=== PATIENT | female | born 1990 | race African-American/Black ===

== ENCOUNTER 2017-02-18 13:37 | Emergency (ER) | payer OTHER ==
[~2017-02-18] VITALS: Ht 167.6 cm; Wt 61.2 kg
[~2017-02-18 13:37] MED LIST: NAPR-683 PO; OXYC-323 PO
[2017-02-18 13:42] VITALS: BP 116/68
[2017-02-18] MEDS ORDERED: HYDR-971 PO (14:23)
[2017-02-18] MEDS ORDERED: PRED20TA PO (14:23)
[2017-02-18] MEDS ORDERED: DOXY100T9 PO (14:23)
--- NOTE | 2017-02-18 14:23 | PHYS DOC ---
Past Medical History Past Medical History: Other Additional Past Medical Histor: LUPUS Past Surgical History: No Surgical History Alcohol Use: Rarely Drug Use: None Adult General Chief Complaint Chief Complaint: SKIN PROBLEM HPI HPI Patient is a 27 year old female presents the ED complaining of blisters to body 3 days. Patient has a history of lupus. States she started to develop small blisters on her arms and now it's on her upper body, abdomen, back and neck. Describes the blisters as painful. Rates the pain as 9 out of 10. States she hasn't taken any new medications, new soaps, new lotions or detergents. States she takes medicine that she has always been taking for her lupus with no recent changes. Patient states she was unable to get in to see her commercial counsel today. Denies fever, nausea/vomiting, sick contacts with similar symptoms, abdominal pain, chest pain, shortness of breath, vision changes, dizziness or weakness. Review of Systems Review of Systems Constitutional: Denies fever or chills [] Eyes: Denies change in visual acuity, redness, or eye pain [] HENT: Denies nasal congestion or sore throat [] Respiratory: Denies cough or shortness of breath [] Cardiovascular: No additional information not addressed in HPI [] GI: Denies abdominal pain, nausea, vomiting, bloody stools or diarrhea [] : Denies dysuria or hematuria [] Musculoskeletal: Denies back pain or joint pain [] Integument: Denies rash or skin lesions [] Neurologic: Denies headache, focal weakness or sensory changes [] Endocrine: Denies polyuria or polydipsia [] All other systems were reviewed and found to be within normal limits, except as documented in this note. Allergies Allergies Allergies Coded Allergies Type Severity Reaction Last Updated Verified hydrocodone Allergy Intermediate 02/18/17 No sulfamethoxazole Allergy Intermediate 02/18/17 No trimethoprim Allergy Intermediate 02/18/17 No Physical Exam Physical Exam Constitutional: Well developed, well nourished, no acute distress, non-toxic appearance. [] HENT: Normocephalic, atraumatic, bilateral external ears normal, oropharynx moist, no oral exudates, nose normal. [] Eyes: PERRLA, EOMI, conjunctiva normal, no discharge. [] Cardiovascular:Heart rate regular rhythm, no murmur [] Lungs & Thorax: Bilateral breath sounds clear to auscultation [] Skin: Warm, dry, MULTILPLE SMALL BLISTERS TO ARMS, BACK, TRUNK AND NECK CONSISTENT WITH BULLOUS PEMPHIGOID. [] Back: No tenderness, no CVA tenderness. [] Neurologic: Alert and oriented X 3, normal motor function, normal sensory function, no focal deficits noted. [] Psychologic: Affect normal, judgement normal, mood normal. [] Current Patient Data Vital Signs Vital Signs Date Time Temp Pulse Resp B/P (MAP) Pulse Ox O2 Delivery O2 Flow Rate FiO2 02/18/17 13:42 98.6 85 18 100 Room Air 98.6 EKG EKG [] Radiology/Procedures Radiology/Procedures [] Course & Med Decision Making Course & Med Decision Making Pertinent Labs and Imaging studies reviewed. (See chart for details) []Patient tried to get in to see her commercial counsel today but was unable to. Discussed with patient the need to see her commercial counsel for further evaluation. Patient's tetanus up-to-date. Patient's pain improved in the ED. Provided in-depth education and symptomatic treatment measures for patient. Will discharge with doxycycline, prednisone and Percocet for analgesics. Patient states she should be able to get into see her doctor early next week. Discussed reasons to return to the ED. Patient understands and agrees with plan. Dragon Disclaimer Dragon Disclaimer This electronic medical record was generated, in whole or in part, using a voice recognition dictation system. Departure Departure Impression: Primary Impression: Bullous pemphigoid Disposition: 01 HOME, SELF-CARE Condition: STABLE Referrals: NON,STAFF (PCP) CRYSTAL LOPEZ MD Patient Instructions: Bullous Pemphigoid Scripts Oxycodone/Apap 5-325 (PERCOCET 5-325 MG TABLET) 1 Each Tablet 1 TAB PO TID, #12 TAB Prov: SEGUN MATA 02/18/17 Prednisone (PREDNISONE) 20 Mg Tablet 2 TAB PO DAILY, #12 TAB Prov: SEGUN MATA 02/18/17 Doxycycline Hyclate (DOXYCYCLINE HYCLATE) 100 Mg Tablet. 1 TAB PO BID, #20 TAB Prov: SEGUN MATA 02/18/17 SEGUN MATA Feb 18, 2017 14:23
[2017-02-18] MEDS ORDERED: OXYC-323 PO (14:35)
== END 2017-02-18 14:28 | disposition home or self-care (01) ==
LOC: ER 13:37
DX: L12.0 Bullous pemphigoid (principal); M32.9 Systemic lupus erythematosus, unspecified; Z88.2 Allergy status to sulfonamides; Z88.5 Allergy status to narcotic agent; Z88.8 Allergy status to other drugs, medicaments and biological substances
CPT/HCPCS: 99283

== ENCOUNTER 2017-02-19 18:07 | Emergency (ER) | payer OTHER ==
[~2017-02-19] VITALS: Ht 170.2 cm; Wt 61.2 kg
[~2017-02-19 18:07] MED LIST changes: +DOXY100T9 PO; +HYDR-971 PO; +PRED20TA PO
[2017-02-19 18:15] VITALS: BP 149/85
[2017-02-19] MEDS ORDERED: ACETAMINOPHEN 500 MG TABLET PO ONE (18:30)
--- NOTE | 2017-02-19 18:30 | PHYS DOC ---
Past Medical History Past Medical History: Other Additional Past Medical Histor: LUPUS Past Surgical History: No Surgical History Alcohol Use: Rarely Drug Use: None Adult General Chief Complaint Chief Complaint: PAIN CONTROL HPI HPI Patient is a 27 year old female who presents complaining her prescription for oxycodone was cancelled by Dr. Guerin yesterday and she would like another prescription. She was seen yesterday in the ED for bullous pemphigoid and was discharged with doxycycline, prednisone and oxycodone. She states she went to the pharmacy and they counseled her oxycodone prescription. She has hx of Lupus. Review of Systems Review of Systems Constitutional: Denies fever or chills [] Eyes: Denies change in visual acuity, redness, or eye pain [] HENT: Denies nasal congestion or sore throat [] Respiratory: Denies cough or shortness of breath [] Cardiovascular: No additional information not addressed in HPI [] GI: Denies abdominal pain, nausea, vomiting, bloody stools or diarrhea [] : Denies dysuria or hematuria [] Musculoskeletal: Denies back pain or joint pain [] Integument: rash Neurologic: Denies headache, focal weakness or sensory changes [] All other systems were reviewed and found to be within normal limits, except as documented in this note. Current Medications Current Medications Current Medications Medications (Trade) Dose Ordered Sig/Heather Start Time Stop Time Status Last Admin Dose Admin Acetaminophen (Tylenol) 500 mg 1X ONCE 02/19/17 18:30 02/19/17 18:35 DC 02/19/17 18:31 500 MG Allergies Allergies Allergies Coded Allergies Type Severity Reaction Last Updated Verified hydrocodone Allergy Intermediate 02/18/17 No sulfamethoxazole Allergy Intermediate 02/18/17 No trimethoprim Allergy Intermediate 02/18/17 No Physical Exam Physical Exam Constitutional: Well developed, well nourished, no acute distress, non-toxic appearance. [] HENT: Normocephalic, atraumatic, bilateral external ears normal, oropharynx moist, no oral exudates, nose normal. [] Eyes: PERRLA, EOMI, conjunctiva normal, no discharge. [] Neck: Normal range of motion, no tenderness, supple, no stridor. [] Cardiovascular:Heart rate regular rhythm, no murmur [] Lungs & Thorax: Bilateral breath sounds clear to auscultation [] Abdomen: Bowel sounds normal, soft, no tenderness, no masses, no pulsatile masses. [] Skin: Warm, dry, blisters noted to bilateral upper extermities consistent with bullous pemphigoid. Patient not willing to be examined further she states she wants pain medicines. Back: No tenderness, no CVA tenderness. [] Extremities: No tenderness, no cyanosis, no clubbing, ROM intact, no edema. [] Neurologic: Alert and oriented X 3, normal motor function, normal sensory function, no focal deficits noted. [] Psychologic: Affect normal, judgement normal, mood normal. [] Current Patient Data Vital Signs Vital Signs Date Time Temp Pulse Resp B/P (MAP) Pulse Ox O2 Delivery O2 Flow Rate FiO2 02/19/17 18:15 99.2 106 16 97 Room Air 99.2 EKG EKG [] Radiology/Procedures Radiology/Procedures [] Course & Med Decision Making Course & Med Decision Making Pertinent Labs and Imaging studies reviewed. (See chart for details) This is a 27 year old female patient presenting to the ED complaining that her prescription for oxycodone she got yesterday for bullous pemphigoid lesions was cancelled. Informed patient I will not refill this prescription. I will give her Tylenol in the Ed and she should fill rx for doxycycline and prednisone but she got yesterday. Patient with very upset. She states that she is going in the car and never returned. INFORMED PATIENT I JUST SAW HER IN THE ED ON 02/14/2017 (UNDER THE NAME RICARDA BARBER 02/13/1989). SHE STATES THAT IS HER TWIN SISTER. I ASKED HER, HER TWIN SISTER HAS THE SAME EXACT TWO GIRLS SHE HAD WHEN I SAW HER 02/14/2017. SHE STATES SHE HAS two BOYS, SHE IS BABY SITING HER SISTERS CHILDREN. I ASKED HER WHERE HER CHILDREN WERE. SHE WILL NOT GIVE ME ANSWERS. PLEASE TAKE NOTE HER IS DIFFERENT FROM HER SO CALLED TWIN SISTER'S DATE OF . SHE ELOPED SOON SHE REALIZED WE HAD FIGURED HER ALIAS NAMES. Dragon Disclaimer Dragon Disclaimer This electronic medical record was generated, in whole or in part, using a voice recognition dictation system. Departure Departure Impression: Primary Impression: Bullous pemphigoid Additional Impressions: Narcotic abuse Drug-seeking behavior Disposition: HOME, SELF-CARE Condition: STABLE Referrals: NO PCP (PCP) follow up with your doctor next week Patient Instructions: Bullous Pemphigoid Additional Instructions: Our ER will NOT give you another narcotics prescription. You need to follow up with your own doctor as soon as you can. Please fill prescriptions for prednisone and doxycycline that you already have. Take over the counter pain medicines as needed for pain. Problem Qualifiers AJAY HORTON APRN Feb 19, 2017 18:30
== END 2017-02-19 18:52 | disposition home or self-care (01) ==
LOC: ER 18:07
DX: L12.0 Bullous pemphigoid (principal); F11.10 Opioid abuse, uncomplicated; M32.9 Systemic lupus erythematosus, unspecified; Z76.5 Malingerer [conscious simulation]; Z88.5 Allergy status to narcotic agent; Z88.2 Allergy status to sulfonamides; Z88.1 Allergy status to other antibiotic agents
CPT/HCPCS: 99282

== ENCOUNTER 2018-06-30 02:46 | Emergency (ER) | payer OTHER ==
[~2018-06-30] VITALS: Ht 175.3 cm; Wt 77.1 kg
[~2018-06-30 02:46] MED LIST changes: +HYDR-3164 PO; -HYDR-971 PO; -OXYC-323 PO; +OXYC1TAB15 PO
--- NOTE | 2018-06-30 03:34 | PHYS DOC ---
Past Medical History Past Medical History: Other Additional Past Medical Histor: LUPUS Past Surgical History: No Surgical History Alcohol Use: Rarely Drug Use: None Adult General Chief Complaint Chief Complaint: VAGINAL BLEEDING HPI HPI Patient is a 28 year old female who presents with vaginal bleeding. Patient states that she has been continuously bleeding for the past three months. Patient states that she has been going through about fifteen pads a day. Patient states that the blood is bright red. Patient states that the bleeding became more significant and associated with large clots over the past few days. Patient reports feeling nauseous, weak, fatigued, and lightheaded over the past three months. Patient reports having a decreased appetite and losing fifty pounds unintentionally in the past three months. Patient states that she last gave on 08/30/17 and had a tubal ligation afterwards. Patient denies having any abdominal pain. Patient states that she has noticed a vaginal odor, however, she denies any abnormal discharge. Review of Systems Review of Systems Constitutional: Denies fever or chills Eyes: Denies change in visual acuity, or eye pain HENT: Denies nasal congestion or sore throat Respiratory: Denies cough or shortness of breath Cardiovascular: Denies chest pain or palpitations GI: Denies abdominal pain, vomiting, or diarrhea : Denies dysuria or hematuria Musculoskeletal: Denies back pain or joint pain Integument: Denies rash or skin lesions Neurologic: Denies headache, focal weakness or sensory changes Complete systems were reviewed and found to be within normal limits, except as documented in this note. Current Medications Current Medications Current Medications Medications (Trade) Dose Ordered Sig/Heather Start Time Stop Time Status Last Admin Dose Admin Sodium Chloride 1,000 ml @ 1,000 mls/hr 1X ONCE 06/30/18 03:45 06/30/18 04:44 06/30/18 04:19 1,000 MLS/HR Allergies Allergies Allergies Coded Allergies Type Severity Reaction Last Updated Verified hydrocodone Allergy Intermediate 02/18/17 No sulfamethoxazole Allergy Intermediate 02/18/17 No trimethoprim Allergy Intermediate 02/18/17 No Physical Exam Physical Exam Constitutional: Well developed, well nourished, no acute distress, non-toxic appearance. HENT: Normocephalic, atraumatic, oropharynx moist, no oral exudates, nose normal. Eyes: PERRL, conjunctiva normal, no discharge. Neck: Normal range of motion, supple, no stridor. Cardiovascular:Heart rate regular rhythm, no murmur Lungs & Thorax: Bilateral breath sounds clear to auscultation Abdomen: Bowel sounds normal, soft, no tenderness on palpation. Skin: Warm, dry, no rash. Back: No tenderness, no CVA tenderness. Extremities: No tenderness, ROM intact, no edema. Pelvic: Scant blood noted in the vaginal vault. Female harpooner, Wilda MS3, present during the entire examination. Neurologic: Alert and oriented X3, normal motor function, normal sensory function, no focal deficits noted. Psychologic: Affect normal. Normal speech. Current Patient Data Vital Signs Vital Signs Date Time Temp Pulse Resp B/P (MAP) Pulse Ox O2 Delivery O2 Flow Rate FiO2 06/30/18 03:08 98.9 16 126/70 (88) 100 Room Air 98.9 Lab Values Laboratory Tests Test 06/30/18 03:18 06/30/18 03:30 POC Urine HCG, Qualitative Hcg negative (Negative) White Blood Count 10.0 x10^3/uL (4.0-11.0) Red Blood Count 4.35 x10^6/uL (3.50-5.40) Hemoglobin 8.7 g/dL (12.0-15.5) L Hematocrit 28.7 % (36.0-47.0) L Mean Corpuscular Volume 66 fL (79-100) L Mean Corpuscular Hemoglobin 20 pg (25-35) L Mean Corpuscular Hemoglobin Concent 31 g/dL (31-37) Red Cell Distribution Width 20.2 % (11.5-14.5) H Platelet Count 423 x10^3/uL (140-400) H Neutrophils (%) (Auto) 72 % (31-73) Lymphocytes (%) (Auto) 20 % (24-48) L Monocytes (%) (Auto) 5 % (0-9) Eosinophils (%) (Auto) 2 % (0-3) Basophils (%) (Auto) 1 % (0-3) Neutrophils # (Auto) 7.2 x10^3uL (1.8-7.7) Lymphocytes # (Auto) 2.0 x10^3/uL (1.0-4.8) Monocytes # (Auto) 0.5 x10^3/uL (0.0-1.1) Eosinophils # (Auto) 0.2 x10^3/uL (0.0-0.7) Basophils # (Auto) 0.1 x10^3/uL (0.0-0.2) Platelet Estimate Adequate (ADEQUATE) Polychromasia Slight Hypochromasia Marked Poikilocytosis Mod Basophilic Stippling Present Anisocytosis Mod Microcytosis Marked Ovalocytes Few Schistocytes Occ Sodium Level 139 mmol/L (136-145) Potassium Level 3.7 mmol/L (3.5-5.1) Chloride Level 103 mmol/L (98-107) Carbon Dioxide Level 23 mmol/L (21-32) Anion Gap 13 (6-14) Blood Urea Nitrogen 15 mg/dL (7-20) Creatinine 0.8 mg/dL (0.6-1.0) Estimated GFR (Cockcroft-Gault) 104.9 Glucose Level 108 mg/dL (70-99) H Calcium Level 9.0 mg/dL (8.5-10.1) Magnesium Level 2.0 mg/dL (1.8-2.4) Laboratory Tests 06/30/18 03:30 Laboratory Tests 06/30/18 03:30 Microbiology 06/30/18 Wet Prep - Final, Complete Microbiology 06/30/18 Wet Prep - Final, Complete EKG EKG [] Radiology/Procedures Radiology/Procedures PROCEDURE: PELVIS W/TV Complete pelvic ultrasound HISTORY: Menorrhagia, 10 months TECHNIQUE: Transabdominal transvaginal transducers with grayscale and duplex Doppler sonography. FINDINGS: Transabdominal sonography demonstrates anteverted uterus. Right ovary measures 4.0 x 1.7 x 2.3 cm with a 1.4 cm dominant follicle. Left ovary not visualized. Transvaginal sonography demonstrates anteverted uterus measuring 8.9 x 6.7 x 4.3 cm. Fundal endometrium thickness 0.5 cm. Mild hypoechoic fluid at the lower uterine endometrial canal. No mass or hypervascularity of the endometrium to localize retained product of conception. No uterine mass documented. Right ovary measures 1.6 x 4.3 x 1.8 cm, left ovary measures 2.5 x 1.4 x 1.3 cm. Intact bilateral ovarian blood flow. Right ovarian 1.8 cm dominant follicle. Subcentimeter left ovarian follicles. No pelvic fluid. IMPRESSION: Thin slip of lower uterine endometrial fluid. No uterine or endometrial mass or endometrial thickening evident. No sonographic findings of retained products of conception. Otherwise negative exam. Electronically signed by: Chad Chan MD (06/30/2018 4:09 AM) [facility] Course & Med Decision Making Course & Med Decision Making Patient is a 28 year old female who presents to the ED for vaginal bleeding. Patient given one liter of fluids in the ED. Pertinent Labs and Imaging studies reviewed. (See chart for details). Pelvic ultrasound did not reveal any acute abnormalities. Hemoglobin noted to be 8.7. Patient instructed to follow up with her [employer] [employer] physician. Patient stable for discharge with outpatient follow-up with PCP. Discussed findings and plan with patient and family, who acknowledge understanding and agreement. Dragon Disclaimer Dragon Disclaimer This electronic medical record was generated, in whole or in part, using a voice recognition dictation system. Departure Departure Impression: Primary Impression: Menometrorrhagia Disposition: 01 HOME, SELF-CARE Condition: STABLE Referrals: NO PCP (PCP) GUIDO MESSER Jr, MD Patient Instructions: Anemia, Nonspecific-Brief, Menorrhagia, [id number] MEMO STREETER DO Jun 30, 2018 03:34
[2018-06-30 03:36] LABS: BASO # 0.1 x10^3/uL (0.0-0.2); BASO % 1 % (0-3); EOS # 0.2 x10^3/uL (0.0-0.7); EOS % 2 % (0-3); HEMATOCRIT 28.7 % (36.0-47.0); HEMOGLOBIN 8.7 g/dL (12.0-15.5); LYMPH % 20 % (24-48); MEAN CORPUSCULAR HEMOGLOBIN 20 pg (25-35); MEAN CORPUSCULAR HGB CONC 31 g/dL (31-37); MEAN CORPUSCULAR VOLUME 66 fL (79-100); MONO # 0.5 x10^3/uL (0.0-1.1); MONO % 5 % (0-9); NEUT # 7.2 x10^3uL (1.8-7.7); NEUT % 72 % (31-73); PLATELET COUNT 423 x10^3/uL (140-400); RED BLOOD COUNT 4.35 x10^6/uL (3.50-5.40); RED CELL DISTRIBUTION WIDTH 20.2 % (11.5-14.5)
[2018-06-30 03:44] LABS: CREATININE 0.8 mg/dL (0.6-1.0); GFR 104.9; POTASSIUM 3.7 mmol/L (3.5-5.1)
[2018-06-30] MEDS ORDERED: IV NORMAL SALINE 1000ML BAG 1,000 ML IV ONE (03:45)
[2018-06-30 04:05] LABS: ANISOCYTOSIS MOD; HYPOCHROMIA MARKED; MICROCYTOSIS MARKED; PLT ESTIMATE ADEQUATE (ADEQUATE); POIKILOCYTOSIS MOD; POLYCHROMASIA SLIGHT
[2018-06-30 04:06] LABS: OVALOCYTES FEW; SCHISTOCYTES OCC
--- NOTE | 2018-06-30 04:13 | RAD ---
Complete pelvic ultrasound HISTORY: Menorrhagia, 10 months TECHNIQUE: Transabdominal transvaginal transducers with grayscale and duplex Doppler sonography. FINDINGS: Transabdominal sonography demonstrates anteverted uterus. Right ovary measures 4.0 x 1.7 x 2.3 cm with a 1.4 cm dominant follicle. Left ovary not visualized. Transvaginal sonography demonstrates anteverted uterus measuring 8.9 x 6.7 x 4.3 cm. Fundal endometrium thickness 0.5 cm. Mild hypoechoic fluid at the lower uterine endometrial canal. No mass or hypervascularity of the endometrium to localize retained product of conception. No uterine mass documented. Right ovary measures 1.6 x 4.3 x 1.8 cm, left ovary measures 2.5 x 1.4 x 1.3 cm. Intact bilateral ovarian blood flow. Right ovarian 1.8 cm dominant follicle. Subcentimeter left ovarian follicles. No pelvic fluid. IMPRESSION: Thin slip of lower uterine endometrial fluid. No uterine or endometrial mass or endometrial thickening evident. No sonographic findings of retained products of conception. Otherwise negative exam. Electronically signed by: Chad Chan MD (06/30/2018 4:09 AM) [facility]
[2018-06-30 05:20] VITALS: BP 103/53
[2018-07-03 15:15] LABS: GC PROBE Negative (Negative)
== END 2018-06-30 05:44 | disposition home or self-care (01) ==
LOC: ER 02:46
DX: N92.1 Excessive and frequent menstruation with irregular cycle (principal); R42 Dizziness and giddiness; R53.83 Other fatigue; R11.0 Nausea; R53.1 Weakness; Z88.1 Allergy status to other antibiotic agents; Z88.2 Allergy status to sulfonamides; Z88.5 Allergy status to narcotic agent
CPT/HCPCS: 36415; 76830; 76856; 80048; 81025; 83735; 85025; 87491; 87591; 96360; 99285; J7030; Q0111

== ENCOUNTER 2018-11-19 19:11 | Emergency (ER) | payer MEDICAID, OTHER ==
[~2018-11-19] VITALS: Ht 175.3 cm; Wt 77.1 kg
[2018-11-19 19:11] VITALS: BP 103/53
[2018-11-19] MEDS ORDERED: IBUP-1027 PO (19:26)
[2018-11-19] MEDS ORDERED: ORPH100T PO (19:27)
--- NOTE | 2018-11-19 19:27 | PHYS DOC ---
Past Medical History Past Medical History: Other Additional Past Medical Histor: LUPUS Past Surgical History: No Surgical History Alcohol Use: Rarely Drug Use: None Adult General Chief Complaint Chief Complaint: BACK PAIN OR INJURY HPI HPI Patient is a 28 year old female that presents with back pain has been ongoing for several days. 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 She rates pain as 7 out of 10 in severity and sharp. Has not taken any medicine prior to arrival. Review of Systems Review of Systems Constitutional: Denies fever or chills [] Eyes: Denies change in visual acuity, redness, or eye pain [] HENT: Denies nasal congestion or sore throat [] Respiratory: Denies cough or shortness of breath [] Cardiovascular: No additional information not addressed in HPI [] GI: Denies abdominal pain, nausea, vomiting, bloody stools or diarrhea [] : Denies dysuria or hematuria [] Musculoskeletal: Reports back pain. Integument: Denies rash or skin lesions [] Neurologic: Denies headache, focal weakness or sensory changes [] Endocrine: Denies polyuria or polydipsia [] Complete systems were reviewed and found to be within normal limits, except as documented in this note. Allergies Allergies Allergies Coded Allergies Type Severity Reaction Last Updated Verified hydrocodone Allergy Intermediate 02/18/17 No sulfamethoxazole Allergy Intermediate 02/18/17 No trimethoprim Allergy Intermediate 02/18/17 No Physical Exam Physical Exam Constitutional: Well developed, well nourished, no acute distress, non-toxic appearance. [] HENT: Normocephalic, atraumatic, bilateral external ears normal, oropharynx moist, no oral exudates, nose normal. [] Eyes: PERRLA, EOMI, conjunctiva normal, no discharge. [] Neck: Normal range of motion, no tenderness, supple, no stridor. [] Cardiovascular:Heart rate regular rhythm, no murmur [] Lungs & Thorax: Bilateral breath sounds clear to auscultation [] Abdomen: Bowel sounds normal, soft, no tenderness, no masses, no pulsatile masses. [] Skin: Warm, dry, no erythema, no rash. [] Back: Tenderness left lower back on palpation. Extremities: No tenderness, no cyanosis, no clubbing, ROM intact, no edema. [] Neurologic: Alert and oriented X 3, normal motor function, normal sensory function, no focal deficits noted. [] Psychologic: Affect normal, judgement normal, mood normal. [] EKG EKG [] Radiology/Procedures Radiology/Procedures [] Course & Med Decision Making Course & Med Decision Making Pertinent Labs and Imaging studies reviewed. (See chart for details) Appears from assessment to have a musculoskeletal strain in her lower back. Will give Norflex in ER and then will write script for Ibuprofen and Norflex. Discussed with patient that Norflex can make you sleepy and it is best taken before bedtime. Dragon Disclaimer Dragon Disclaimer This electronic medical record was generated, in whole or in part, using a voice recognition dictation system. Departure Departure Impression: Primary Impression: Musculoskeletal back pain Disposition: HOME, SELF-CARE Condition: STABLE Referrals: NO PCP (PCP) Patient Instructions: Musculoskeletal Pain Additional Instructions: Thank you for visiting [facility]. We appreciate you trusting us with your care. If any additional problems come up don't hesitate to return to visit us. Please follow up with your primary care provider so they can plan additional care if needed and know about the problem that you had. If symptoms worsen come back to the Emergency Department. Any concerning symptoms that start such as chest pain, shortness of air, weakness or numbness on one side of the body, running high fevers or any other concerning symptoms return to the ER. Please fill your medications at any pharmacy and follow the prescription instructions. The Norflex is best use before bedtime as it makes her sleepy. He can also use nonpharmacological interventions such as foam roller, using a tennis ball rule out the muscle in your back. You can also try heat patches [id number]. Be careful not to keep them on longer than label instructions indicate. Scripts Orphenadrine Citrate (ORPHENADRINE CITRATE) 100 Mg Tablet.er 1 TAB PO BID PRN for MUSCLE PAIN, #20 TAB Prov: MEMO GARCIA APRN 11/19/18 Ibuprofen (IBUPROFEN) 400 Mg Tablet 400 MG PO PRN Q6HRS PRN for INFLAMMATION for 5 Days, #20 TAB Prov: MEMO GARCIA APRN 11/19/18 MEMO GARCIA APRN Nov 19, 2018 19:27
[2018-11-19] MEDS ORDERED: ORPHENADRINE CITRATE 60 MG/2 ML VIAL. IM ONE (19:30)
== END 2018-11-19 19:41 | disposition home or self-care (01) ==
LOC: ER 19:11
DX: M54.5 Low back pain (principal); Z88.5 Allergy status to narcotic agent; Z88.2 Allergy status to sulfonamides; Z88.1 Allergy status to other antibiotic agents
CPT/HCPCS: 96372; 99283; J2360

== ENCOUNTER 2019-04-08 13:19 | Emergency (ER) | payer MEDICAID ==
[~2019-04-08] VITALS: Ht 175.3 cm; Wt 77.2 kg
[~2019-04-08 13:19] MED LIST changes: +DOXY-96 PO; -DOXY100T9 PO; +IBUP-1027 PO; +ORPH100T PO
[2019-04-08 14:33] VITALS: BP 103/53
--- NOTE | 2019-04-08 15:11 | PHYS DOC ---
Past Medical History Past Medical History: No Pertinent History, Other Additional Past Medical Histor: LUPUS Past Surgical History: No Surgical History Alcohol Use: Rarely Drug Use: None Adult General Chief Complaint Chief Complaint: ANKLE PROBLEM HPI HPI Patient is a 29 year old female who presents with [pain to her left ankle. States she had stepped in a hole in the yard last night, has been having pain in her left ankle since that time. States she has not been able to walk on it due to discomfort. States she did take some ibuprofen this morning, noted didn't seem to help very much. Denies pain to knee, back, or elsewhere] Review of Systems Review of Systems Constitutional: Denies fever or chills [] Respiratory: Denies cough or shortness of breath [] Cardiovascular: No additional information not addressed in HPI [] Musculoskeletal: Denies back pain or joint pain, complains of pain to left ankle. [] Integument: Denies rash or skin lesions [] Neurologic: Denies headache, focal weakness or sensory changes [] All other systems were reviewed and found to be within normal limits, except as documented in this note. Current Medications Current Medications Current Medications Medications (Trade) Dose Ordered Sig/Heather Start Time Stop Time Status Last Admin Dose Admin Tramadol HCl (Ultram) 50 mg 1X ONCE 04/08/19 15:15 04/08/19 15:17 DC 04/08/19 15:36 50 MG Allergies Allergies Allergies Coded Allergies Type Severity Reaction Last Updated Verified hydrocodone Allergy Intermediate 02/18/17 No sulfamethoxazole Allergy Intermediate 02/18/17 No trimethoprim Allergy Intermediate 02/18/17 No Physical Exam Physical Exam Constitutional: Well developed, well nourished, no acute distress, non-toxic appearance. [] [] Cardiovascular:Heart rate regular rhythm, no murmur [] Lungs & Thorax: Bilateral breath sounds clear to auscultation [] Skin: Warm, dry, no erythema, no rash. [] Extremities: No tenderness, no cyanosis, no clubbing, ROM intact, no edema. Discomfort on palpation to foot, decreased ability to flex foot due to discomfort. No gross deformity appreciated[] Neurologic: Alert and oriented X 3, normal motor function, normal sensory function, no focal deficits noted. [] Psychologic: Affect normal, judgement normal, mood normal. [] Current Patient Data Vital Signs Vital Signs Date Time Temp Pulse Resp B/P (MAP) Pulse Ox O2 Delivery O2 Flow Rate FiO2 04/08/19 15:36 18 98 Room Air 04/08/19 14:33 98.3 99 103/53 (70) 98.3 EKG EKG [] Radiology/Procedures Radiology/Procedures []NKLE LEFT 3V History: Injury. Pain. Technique: 3 views left ankle. Comparison: None. Findings: Normal alignment. No fracture. Symmetric ankle mortise. Impression: 1. No acute osseous abnormality. Electronically signed by: Campos Barajas DO (04/08/2019 3:44 PM) [facility] Course & Med Decision Making Course & Med Decision Making Pertinent Labs and Imaging studies reviewed. (See chart for details) [Reviewed imaging results with patient, with no noted fracture. Will provide ankle stirrup splint and crutches if requested. Reviewed [facility], with patient having 5 controlled substance prescriptions over the past 2 months, with gabapentin, Tylenol III, and prior Oxycodone Rx. Will recommend patient continue NSAIDs and follow up with PCP.] Dragon Disclaimer Dragon Disclaimer This electronic medical record was generated, in whole or in part, using a voice recognition dictation system. Departure Departure Impression: Primary Impression: Left ankle sprain Disposition: 01 HOME, SELF-CARE Condition: GOOD Referrals: NO PCP (PCP) Patient Instructions: Ankle Sprain Additional Instructions: As we discussed, he should continue to put ice on her ankle. He should continue to take Tylenol and ibuprofen for the discomfort. We are providing an ankle brace to help stabilize your ankle and keep it from bending and further straining the ligaments in your ankle, giving it a chance to heal. Follow up with your primary care provider in the next 5-7 days if you continue to have discomfort. Use the crutches as needed to stay off your foot as much as possible. Problem Qualifiers Primary Impression: Left ankle sprain Encounter type: initial encounter Involved ligament of ankle: unspecified ligament Qualified Codes: S93.402A - Sprain of unspecified ligament of left ankle, initial encounter SEGUN CASILLAS APRN Apr 08, 2019 15:11
[2019-04-08] MEDS ORDERED: traMADol 50 MG TABLET PO ONE (15:15)
--- NOTE | 2019-04-08 15:46 | RAD ---
ANKLE LEFT 3V History: Injury. Pain. Technique: 3 views left ankle. Comparison: None. Findings: Normal alignment. No fracture. Symmetric ankle mortise. Impression: 1. No acute osseous abnormality. Electronically signed by: Campos Barajas DO (04/08/2019 3:44 PM) [facility] [id number]
== END 2019-04-08 16:12 | disposition home or self-care (01) ==
LOC: ER 13:19
DX: S93.402A Sprain of unspecified ligament of left ankle, initial encounter (principal); M32.9 Systemic lupus erythematosus, unspecified; Z88.1 Allergy status to other antibiotic agents; Z88.2 Allergy status to sulfonamides; Z88.5 Allergy status to narcotic agent; W17.2XXA Fall into hole, initial encounter; Y93.89 Activity, other specified; Y92.096 Garden or yard of other non-institutional residence as the place of occurrence of the external cause; Y99.8 Other external cause status
CPT/HCPCS: 73610; 99284; L4350